=== PATIENT | male | born 1960 | race Caucasian/White ===

== ENCOUNTER → 2017-11-05 | Outpatient (CLI) | payer BC, OTHER | LOC: M ADAMS 16:41 | DX: S97.111A Crushing injury of right great toe, initial encounter (principal); X58.XXXA Exposure to other specified factors, initial encounter; Y92.89 Other specified places as the place of occurrence of the external cause; Y99.9 Unspecified external cause status; Y93.9 Activity, unspecified | CPT/HCPCS: 73660 ==

== ENCOUNTER 2019-06-01 08:36 | Emergency (ER) | payer OTHER, BC ==
[~2019-06-01] VITALS: Ht 170.2 cm; Wt 88.6 kg
[2019-06-01 08:37] VITALS: BP 172/85
[2019-06-01] MEDS ORDERED: AMLO25TA PO (08:42)
[2019-06-01] MEDS ORDERED: NOVOINJ SC (08:42)
[2019-06-01] MEDS ORDERED: RAMI1CAP26 PO (08:42)
[2019-06-01] MEDS ORDERED: ZETI10TA16 PO (08:42)
--- NOTE | 2019-06-01 09:33 | REP ---
REASON: Trauma. Patient felt a pop. There is mild AC joint DJD. The glenohumeral relationship is within normal limits. There is no acute fracture, dislocation or subluxation. IMPRESSION: Mild AC joint DJD. Electronically Signed by Willy Lantigua DO 06/01/2019 12:18 P
== END 2019-06-01 09:26 | disposition home or self-care (01) ==
LOC: M ED 08:36
DX: M25.512 Pain in left shoulder (principal); M75.102 Unspecified rotator cuff tear or rupture of left shoulder, not specified as traumatic; I10 Essential (primary) hypertension; E11.9 Type 2 diabetes mellitus without complications; Z79.4 Long term (current) use of insulin; Z79.899 Other long term (current) drug therapy

== ENCOUNTER → 2019-07-12 | Outpatient (CLI) | payer OTHER ==
[~2019-07-12] MED LIST: AMLO25TA PO; CONRAY-43 43% 50ML VIAL (Q9960) As Ordered ONE; NOVOINJ SC; PROHANCE 279.3MG/ML 5ML VIAL (A9576) As Ordered ONE; RAMI1CAP26 PO; ZETI10TA16 PO
== END ==
LOC: M RADPRO 06:38
PROVIDERS: ATTEND Orthopaedic Surgery
DX: S46.012A Strain of muscle(s) and tendon(s) of the rotator cuff of left shoulder, initial encounter (principal); Z53.8 Procedure and treatment not carried out for other reasons

== ENCOUNTER → 2019-08-13 | Outpatient (CLI) | payer OTHER ==
--- NOTE | 2019-08-13 11:17 | REP ---
MR arthrography left shoulder: with pre and post intra-articular gadolinium enhanced saline injected imaging: History: Strain left shoulder muscle or tendon. Rule out rotator cuff tear versus labral tear. No comparison study. The patient relates a history of popping injury May of 2019 with increased shoulder pain and limited range of motion left shoulder. Comparison radiographs are from June 01, 2019. Technique: The injection procedure is performed and dictated separately. Pre and post intra-articular gadolinium enhanced saline injected imaging is acquired. Imaging planes include axial, oblique coronal, oblique sagittal and ABER projection images. T1 T2-weighted scans are included with and without fat saturation. MRI findings: Pre injection imaging demonstrates osteoarthritic hypertrophy and minimal marrow edema on either side of the acromioclavicular joint. AC joint is normally aligned. Glenohumeral articulation is normally aligned. There is low T1 low T2 signal intensity granular material at the superolateral margin of the humeral head in the extra-articular soft tissues consistent with calcific tendinobursitis changes. These are surrounded by T2 hyperintense edema. The largest calcific focus measures 5 mm in greatest diameter. There is some swelling and increased signal intensity diffusely in the distal supraspinatus tendon on T1-weighted scans. There is a tiny partial-thickness T2 hyperintense lesion at the distal tendon insertion. There is no evidence of full-thickness cuff tear on pre injection imaging. There is mild tendinosis change in the subscapularis tendon. Infraspinatus tendon is unremarkable. Post injection imaging shows good filling and enhancement of the left glenohumeral articulation. There is T2 fluid and enhanced saline undermining the superior labrum cartilage on oblique coronal post injection imaging consistent with a degenerative SLAP tear nondisplaced. There is mild marginal spurring of the humeral head. There is a nondisplaced anterior labral tear visible on ABER views with enhanced saline undermining the base of the labral cartilage. No posterior labral tear is appreciated. No evidence of loose body. Post injection imaging shows no full-thickness supraspinatus cuff tear. 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 Degenerative nondisplaced superior labral and anterior labral tears. Periarticular soft tissue calcific deposits consistent with calcific tendonitis/bursitis. Supraspinatus tendinosis. Electronically Signed by Antwan Daniel MD 08/13/2019 06:51 P
--- NOTE | 2019-08-13 19:51 | REP ---
Procedure: Left shoulder arthrogram The procedure was performed under the direct supervision of Dr. Daniel. History: Left shoulder pain The benefits and risks including but not limited to pain, infection, bleeding and anaphylaxis were explained to the patient and informed consent was obtained. Technique: The left glenohumeral joint space was localized using fluoroscopic guidance. The skin was prepped and draped in a sterile fashion. 1% lidocaine was used as a local anesthetic. Using fluoroscopic guidance a 22 gauge spinal needle was inserted and advanced into the joint. 0.5 ml of Conray 43 was injected to verify placement. 11 ml of a solution containing 20 ml of sterile saline and 0.15 ml of ProHance was injected into the joint. The needle was removed and the patient was taken to MRI for postprocedural imaging. The the patient tolerated the procedure well and there were no immediate complications. Less than 6 seconds of fluoro time was utilized for this procedure. Electronically Signed by REED Tapia 08/13/2019 04:10 P Electronically Signed by Antwan Daniel MD 08/13/2019 07:41 P
== END ==
LOC: M RADPRO 06:52
PROVIDERS: ATTEND Orthopaedic Surgery
DX: M19.012 Primary osteoarthritis, left shoulder (principal); S43.432D Superior glenoid labrum lesion of left shoulder, subsequent encounter; S46.012D Strain of muscle(s) and tendon(s) of the rotator cuff of left shoulder, subsequent encounter
CPT/HCPCS: 23350; 73223; 77002; A9576; Q9960

== ENCOUNTER → 2019-11-19 | Outpatient (CLI) | payer OTHER ==
[~2019-11-19] MED LIST changes: +ATOR1TAB19 PO; -CONRAY-43 43% 50ML VIAL (Q9960) As Ordered ONE; +LEVO50TA5 PO; +PANT40TA3 PO; -PROHANCE 279.3MG/ML 5ML VIAL (A9576) As Ordered ONE; +VITA-157 PO; +VITAD1000T PO
== END ==
LOC: M LABSMTC 11:02
PROVIDERS: ATTEND Anesthesiology
DX: Z01.818 Encounter for other preprocedural examination (principal); Z11.59 Encounter for screening for other viral diseases
CPT/HCPCS: C9803; U0003

== ENCOUNTER → 2019-11-21 | Outpatient (CLI) | payer OTHER ==
--- NOTE | 2019-11-21 18:23 | ECGEPIP ---
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
[2019-11-21 19:09] LABS: HEMATOCRIT 41.6 % (42.0-52.0); MEAN CORPUSCULAR HEMOGLOBIN 30.4 pg (27.0-33.0); MEAN CORPUSCULAR HGB CONC 33.7 g/dl (32.0-36.5); MEAN CORPUSCULAR VOLUME 90.4 fl (80.0-96.0); PLATELET COUNT, AUTOMATED 269 10^3/uL (150-450)
== END ==
LOC: M LAB 17:03
PROVIDERS: ATTEND Orthopaedic Surgery
DX: Z01.818 Encounter for other preprocedural examination (principal)

== ENCOUNTER 2019-11-22 13:42 | Day surgery (SDC) | payer OTHER ==
[~2019-11-22] VITALS: Ht 170.2 cm; Wt 88.9 kg
[~2019-11-22 13:42] MED LIST changes: +ceFAZolin SOD 2 GM in IV 1 EA IV ONE
[2019-11-22] MEDS ORDERED: dexameTHASONE 10MG/1ML VIAL PRES.FREE (J1100 PER 1MG) ONE (13:43)
[2019-11-22] MEDS ORDERED: ROPIvacaine 0.5% 30ML INJECTION (J2795 PER 1MG) ONE (13:43)
[2019-11-22] MEDS ORDERED: LIDOCAINE 2% 100MG/5ML SDV (FOR ANES.) As Ordered ONE ×2 (14:09→17:37)
[2019-11-22] MEDS ORDERED: propofoL 200 MG/20 ML VIAL As Ordered ONE (14:09)
[2019-11-22] MEDS ORDERED: ROCURONIUM BROMIDE 50 MG/5 ML VIAL As Ordered ONE ×2 (14:09→17:46)
[2019-11-22] MEDS ORDERED: MIDAZOLAM INJ 2MG/2ML VIAL (J2250 PER 1MG) As Ordered ONE ×2 (14:10→16:09)
[2019-11-22] MEDS ORDERED: fentaNYL 100 MCG/2 ML INJECTION (J3010) As Ordered ONE ×2 (14:10→16:09)
[2019-11-22] MEDS ORDERED: ONDANSETRON 4MG/2ML VIAL As Ordered ONE (14:11)
[2019-11-22] MEDS ORDERED: dexameTHASONE 4 MG/ML 1ML VIAL (J1100 PER 1MG) As Ordered ONE (14:11)
[2019-11-22] MEDS ORDERED: EPINEPHrine 1MG/ML INJ 30ML MD-VIAL As Ordered ONE (16:23)
[2019-11-22] MEDS ORDERED: MIDAZOLAM INJ 2MG/2ML VIAL (J2250 PER 1MG) IV ONE (17:15)
[2019-11-22] MEDS ORDERED: fentaNYL 100 MCG/2 ML INJECTION (J3010) IV ONE (17:15)
[2019-11-22] MEDS ORDERED: LIDOCAINE 1% MDV 20ML VIAL As Ordered ONE (17:17)
[2019-11-22] MEDS ORDERED: BUPIVACAINE HCL 0.5% 30 ML VIAL As Ordered ONE (17:19)
[2019-11-22] MEDS ORDERED: LABETALOL 100MG/20ML VIAL As Ordered ONE (17:33)
[2019-11-22] MEDS ORDERED: LIDOCAINE PRES-FREE 2% 10ML AMP As Ordered ONE (17:36)
[2019-11-22] MEDS ORDERED: HYDROmorphone HCL 2 MG/ML 1ML VIAL (J1170) As Ordered ONE (17:56)
[2019-11-22] MEDS ORDERED: SUGAMMADEX SODIUM 500 MG/5 ML VIAL (BRIDION) As Ordered ONE (19:17)
[2019-11-22] MEDS ORDERED: KETOROLAC 60 MG/2 ML VIAL As Ordered ONE (19:17)
[2019-11-22] MEDS ORDERED: ACETAMINOPHEN 1000MG 100ML IV BTL (OFIRMEV) (J0131 PER 10MG) As Ordered ONE (19:17)
--- NOTE | 2019-11-22 20:14 | ECGEPIP ---
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
[2019-11-22] MEDS ORDERED: oxyCODONE 5MG TAB PO PRN (20:15)
[2019-11-22] MEDS ORDERED: ONDANSETRON 4MG/2ML VIAL IV PRN (20:15)
[2019-11-22] MEDS ORDERED: LR 1,000 ML IV SCH ×2 (20:15→20:30)
[2019-11-22] MEDS ORDERED: fentaNYL 100 MCG/2 ML INJECTION (J3010) IV PRN (20:15)
[2019-11-22] MEDS ORDERED: hydrALAZINE 20MG/ML 1ML VIAL (J0360 PER 20MG) IV SCH (20:30)
[2019-11-22] MEDS ORDERED: oxyCODONE 5MG TAB As Ordered ONE (21:21)
[2019-11-22 22:00] VITALS: BP 132/83
--- NOTE | 2019-11-26 17:33 | RO ---
DATE OF PROCEDURE: 11/22/2019 PREOPERATIVE DIAGNOSES: 1. Left shoulder anterior instability. 2. Left shoulder superior labral tear. 3. Left shoulder partial thickness rotator cuff tear. 4. Left shoulder impingement. POSTOPERATIVE DIAGNOSES: 1. Left shoulder anterior instability. 2. Left shoulder superior labral tear. 3. Left shoulder partial thickness rotator cuff tear. 4. Left shoulder impingement. 5. Chondromalacia of the glenoid. PROCEDURE: 1. Left shoulder arthroscopic anterior labral repair. 2. Left shoulder open subpectoral biceps tenodesis. 3. Left shoulder arthroscopic chondroplasty of the glenoid, superior labral debridement and rotator cuff debridement. 4. Left shoulder arthroscopic subacromial decompression including acromioplasty. SURGEON: Henrik Rivera MD HAND PLEATER: NICHOLAS Rothman ANESTHESIA: General with preoperative nerve block. IV FLUIDS: Lactated Ringer's. ESTIMATED BLOOD LOSS: 25 mL. IMPLANTS: Arthrex proximal biceps button times one, Arthrex 3 mm SutureTak times one, Arthrex 2.9 mm PushLock with LabralTape times two. CLOSURE: Monocryl, nylon. DESCRIPTION OF PROCEDURE: The patient was identified in the preoperative holding area. The left shoulder was marked by myself. He had a preoperative nerve block. He was brought to the operating room, placed supine on a well-padded operating room (OR) table. He had 170 degrees of forward flexion, 80 of external rotation with his arm at his side, grade 2 plus anterior load and shift, grade 1 posterior load and shift. He was then placed into the right side down lateral decubitus position with an axillary roll and all bony prominences were well padded. Great care was taken to protect his insulin pump. He had bilateral Venodyne boots for deep vein thrombosis (DVT) prophylaxis. The left arm was placed into the Arthrex STaR Sleeve lateral decubitus traction almaguer, 10 pounds of traction. He was secured to the OR table with a beanbag. The left shoulder was then prepped and draped in a normal sterile fashion with Chloraprep. He received appropriate IV antibiotics within 1 hour of incision. Dima Saez was present for the entire procedure and participated in all essential portions of the procedure. This included patient positioning, draping, holding the arthroscope, holding retractors and assisting with the whipstitch during the tenodesis, providing axial traction and holding the arthroscope and retrieving sutures during the labral repair, as well as applying the dressing, performing the wound closure and the sling. A standard posterolateral portal was made with #11-blade, 30-degree arthroscope introduced into the joint. Diagnostic arthroscopy was carried out revealing a type 2 SLAP tear with a large hypertrophied tear of the superior labrum. There was tearing of the entire anterior inferior labrum without any bumper. There was a positive drive-through sign. Humeral head was noted to be subluxated anterior and inferior. There was no tearing of the supra or infraspinatus on the articular surface. There was some low-grade tearing of the upper border of the subscapularis. The long head of biceps overall was intact. An anterior working portal was established through the rotator interval. On probing the superior labrum and biceps, this was an unstable tear, so I performed a tenotomy with the meniscal biter and then I performed a debridement of the superior labrum. Performed a chondroplasty to the glenoid where there was grade 2, and an area of grade 3 chondromalacia just at the very far anterior glenoid. Next, the hooked cautery was used to subperiosteally elevate capsule and labrum off the anterior glenoid neck. A second cannula was placed through the rotator interval just anterior to the biceps. Labral elevators were then used to subperiosteally elevate capsule off the anterior glenoid neck further. The full capsule labrum complex was mobilized. Ring curette was then used to remove 1 mm of articular cartilage, as well as create a bleeding surface on the anterior glenoid neck. I then drilled and placed the 3 mm Arthrex SutureTak at the 7 o'clock position. The SutureLasso was then used to shuttle the FiberTapes and LabralTapes through the anterior capsule and labrum, taking care to grasp the anterior band of the inferior glenohumeral ligament. Sutures were passed in a horizontal mattress fashion. Prior to tying them down, I then proceeded with an open biceps tenodesis. Incision made with a #15 blade just lateral to the axilla and subcutaneous dissection down to the biceps fascia. Long head of the biceps was identified and retrieved with a right angle clamp. Arthrex proximal biceps kit was opened and a running locking whipstitch placed with the Fiber Loop. Excess tendon was trimmed and discarded. I then used the spade tip drill bit to create a unicortical drill hole within the proximal humerus and the bicipital groove. Bony debris removed with irrigation. Sutures were loaded through the button, button passed through the drill hole on the radiology director, sutures toggled which flipped the button and docked the tendon along the bicipital groove nicely. Curve-free needle used to pass one limb of suture back through the tendon, knots tied by hand and locked the construct in place. This nicely restored the resting tension of the biceps. The incision was reirrigated, then closed in layered fashion #2-0 Vicryl, #2-0 Vicryl and a running Monocryl. At the end of the case, Steri-Strips were placed. Arthroscope was placed back into the joint and then the knot pusher was used to tie the SutureTak sutures using alternating half-hitch technique. This nicely restored the anterior-inferior bumper. I then used the SutureLasso to shuttle LabralTape, and these were loaded through PushLock anchors. The PushLocks were placed at the 4 and 3 o'clock position. Both had great fixation. This nicely tightened down the front of the shoulder. Subscapularis appeared excellent at this point. Shoulder was irrigated and drained. Arthroscope placed in the subacromial space where there was extensive bursitis. Through a lateral portal, I performed a bursectomy and then used the bur to perform an acromioplasty. Scattered thin deposits of calcium were encountered and debrided with a shaver. There was very impressive bursitis. However, there really was not any significant degree of bursal sided rotator cuff tearing; the MRI had overestimated this. There really was no indication for rotator cuff repair. With an excellent decompression, we then irrigated and drained the shoulder, closed the portals with nylon suture, applied a sterile dressing, and then he was placed into the ARC 2 sling. He was extubated, transferred to the post-anesthesia care unit (PACU) in stable condition. The patient may get a second nerve block seeing how the preoperative block did not work great for his pain. The plan will be for the patient to be out of work 100% temporary partial disability, and he will start physical therapy in a week.
== END 2019-11-22 22:30 | disposition home or self-care (01) ==
LOC: M SDC 13:42
PROVIDERS: ATTEND Orthopaedic Surgery
DX: M25.312 Other instability, left shoulder (principal); M75.102 Unspecified rotator cuff tear or rupture of left shoulder, not specified as traumatic; M75.42 Impingement syndrome of left shoulder; M94.212 Chondromalacia, left shoulder; S43.432A Superior glenoid labrum lesion of left shoulder, initial encounter; K21.9 Gastro-esophageal reflux disease without esophagitis; I10 Essential (primary) hypertension; E78.5 Hyperlipidemia, unspecified; E10.9 Type 1 diabetes mellitus without complications; Z79.4 Long term (current) use of insulin; Z96.41 Presence of insulin pump (external) (internal); Z79.899 Other long term (current) drug therapy; F17.220 Nicotine dependence, chewing tobacco, uncomplicated; Y92.89 Other specified places as the place of occurrence of the external cause; Y93.9 Activity, unspecified
CPT/HCPCS: 23430; 29807; 29823; 29826; 64415; 88304; 93005; C1713; J0131; J0690; J1100; J1170; J1885; J2250; J2405; J2795; J3010

== ENCOUNTER → 2020-08-11 | Outpatient (CLI) | payer BC, OTHER ==
[~2020-08-11] MED LIST changes: +D31000TA2 PO; +PANT40TA29 PO; -PANT40TA3 PO; -VITAD1000T PO; -ceFAZolin SOD 2 GM in IV 1 EA IV ONE
[2020-08-11 08:02] LABS: HEMATOCRIT 36.5 % (42.0-52.0); HEMOGLOBIN 11.9 g/dl (13.5-17.5); MEAN CORPUSCULAR HEMOGLOBIN 32.6 pg (27.0-33.0); MEAN CORPUSCULAR HGB CONC 32.6 g/dl (32.0-36.5); PLATELET COUNT, AUTOMATED 129 10^3/uL (150-450); RED BLOOD COUNT 3.65 10^6/uL (4.30-6.10); WHITE BLOOD COUNT 4.7 10^3/uL (4.0-10.0)
[2020-08-11 08:24] LABS: HEMOGLOBIN A1c 8.7 %
[2020-08-11 08:38] LABS: ALBUMIN 3.1 GM/DL (3.2-5.2); ALT/SGPT 93 U/L (12-78); BILIRUBIN,TOTAL 1.4 MG/DL (0.2-1.0); BLOOD UREA NITROGEN 10 MG/DL (7-18); CARBON DIOXIDE LEVEL 30 MEQ/L (21-32); CHLORIDE LEVEL 96 MEQ/L (98-107); CHOLESTEROL LEVEL 271 MG/DL (<200); CHOLESTEROL RISK RATIO 6.302 (<5); CREATININE FOR GFR 1.14 MG/DL (0.70-1.30); GLOMERULAR FILTRATION RATE > 60.0 (>56); GLUCOSE, FASTING 345 MG/DL (70-100); HDL CHOLESTEROL 43 MG/DL (>40); LDL CHOLESTEROL 208 MG/DL (<100); NON-HDL-C 228 MG/DL; POTASSIUM SERUM 4.1 MEQ/L (3.5-5.1); PROSTATIC SPECIFIC AG MONITOR 0.31 NG/ML (< 4.00); SODIUM LEVEL 135 MEQ/L (136-145); THYROID STIMULATING HORMONE 0.618 uIU/ML (0.358-3.740); TRIGLYCERIDES LEVEL 99 MG/DL (<150)
[2020-08-11 11:46] LABS: TOTAL 25(OH) VITAMIN D 36.3 NG/ML (30.0-100.0)
[2020-08-11 11:47] LABS: TESTOSTERONE 512 NG/DL (241-827)
== END ==
LOC: M LAB 06:38
PROVIDERS: ATTEND Family Medicine
DX: I10 Essential (primary) hypertension (principal); R53.83 Other fatigue

== ENCOUNTER → 2020-08-29 | Outpatient (CLI) | payer BC, OTHER ==
--- NOTE | 2020-08-29 13:27 | REP ---
INDICATION: HTN,FATIGUE. COMPARISON: 05/23/2011 TECHNIQUE: Two views FINDINGS: The lung manzano are well inflated. CP angles are sharply defined. There is no pleural effusion, lateral pleural thickening, acute infiltrate, pulmonary nodule or parenchymal mass evident. Heart is not enlarged and shows no chamber enlargement. There is no vascular redistribution or pulmonary edema. Bony thorax shows small marginal osteophytes, age-appropriate without compression deformity or destructive lesion. No free air under the diaphragm. IMPRESSION: 1. No acute cardiopulmonary change, stable chest. <Electronically signed by Eddie Israel > 08/29/20 [id number]
--- NOTE | 2020-08-30 14:39 | ECGEPIP ---
[facility] Test Date: 2020-08-29 Pat Name: BLAYNE RAY Department: Room: - Gender: Male Visual Coordinator: CHANELL : 1960 Requested By: Ephraim Mcleod Order Number: [id number] Reading MD: Nixon Nazario Measurements Intervals [place] Rate: 99 P: 73 [place]: 178 QRS: -17 QRSD: 86 T: 8 QT: 368 QTc: 472 Interpretive Statements Normal sinus rhythm Low QRS complex voltage in the limb leads Inferior wall OK, age indeterminate Delayed anterior R wave progression Nonspecific ST-T wave abnormalities Compared to prior tracing of 11/22/2019, anterior R wave progression is improved Electronically Signed on 08-30-2020 14:38:55 EST by Nixon Nazario
== END ==
LOC: M EKG 12:02
PROVIDERS: ATTEND Family Medicine
DX: I10 Essential (primary) hypertension (principal); E11.9 Type 2 diabetes mellitus without complications; R53.83 Other fatigue

== ENCOUNTER → 2020-10-21 | Outpatient (CLI) | payer BC, OTHER ==
[~2020-10-21] MED LIST changes: -VITA-157 PO; +VITAE40CA PO
[2020-10-21 10:08] LABS: HEMATOCRIT 44.1 % (42.0-52.0); HEMOGLOBIN 14.5 g/dl (13.5-17.5); MEAN CORPUSCULAR HEMOGLOBIN 29.9 pg (27.0-33.0); MEAN CORPUSCULAR HGB CONC 32.9 g/dl (32.0-36.5); MEAN CORPUSCULAR VOLUME 90.9 fl (80.0-96.0); PLATELET COUNT, AUTOMATED 278 10^3/uL (150-450); RED BLOOD COUNT 4.85 10^6/uL (4.30-6.10); WHITE BLOOD COUNT 6.3 10^3/uL (4.0-10.0)
[2020-10-21 10:46] LABS: ALBUMIN 4.1 GM/DL (3.2-5.2); ALT/SGPT 23 U/L (12-78); BILIRUBIN,TOTAL 0.4 MG/DL (0.2-1.0); BLOOD UREA NITROGEN 10 MG/DL (7-18); CALCIUM LEVEL 9.6 MG/DL (8.5-10.1); CARBON DIOXIDE LEVEL 28 MEQ/L (21-32); CHLORIDE LEVEL 101 MEQ/L (98-107); CHOLESTEROL LEVEL 341 MG/DL (<200); CHOLESTEROL RISK RATIO 6.433 (<5); CREATININE FOR GFR 1.14 MG/DL (0.70-1.30); GLOMERULAR FILTRATION RATE > 60.0 (>56); GLUCOSE, FASTING 301 MG/DL (70-100); HDL CHOLESTEROL 53 MG/DL (>40); LDL CHOLESTEROL 255 MG/DL (<100); NON-HDL-C 288 MG/DL; POTASSIUM SERUM 4.1 MEQ/L (3.5-5.1); PROSTATIC SPECIFIC AG MONITOR 0.46 NG/ML (< 4.00); SODIUM LEVEL 137 MEQ/L (136-145); TOTAL PROTEIN 7.5 GM/DL (6.4-8.2); TRIGLYCERIDES LEVEL 166 MG/DL (<150)
[2020-10-21 10:52] LABS: TESTOSTERONE 722 NG/DL (241-827)
== END ==
LOC: M LAB 09:06
PROVIDERS: ATTEND Family Medicine
DX: I10 Essential (primary) hypertension (principal); E11.9 Type 2 diabetes mellitus without complications; R53.83 Other fatigue

== ENCOUNTER → 2021-01-13 | Outpatient (CLI) | payer BC, OTHER ==
[~2021-01-13] MED LIST changes: +GABA-282 PO
== END ==
LOC: M LABSMTC 13:09
PROVIDERS: ATTEND Anesthesiology
DX: Z01.812 Encounter for preprocedural laboratory examination (principal); Z20.822 Contact with and (suspected) exposure to COVID-19

== ENCOUNTER 2021-01-18 08:42 | Day surgery (SDC) | payer BC, OTHER ==
[~2021-01-18] VITALS: Ht 170.2 cm; Wt 83.9 kg
[2021-01-18] MEDS ORDERED: POVIDONE-IODINE 5% OPHTH PREP SOL 30ML As Ordered ONE (11:00)
[2021-01-18] MEDS ORDERED: mitoMYcin 0.2 MG/VIAL KIT FOR OPHTHALMIC USE (J7315 PER 0.2MG) As Ordered ONE (11:01)
[2021-01-18] MEDS ORDERED: LIDOCAINE 2% W/EPINEPHRINE 20ML VIAL **PRES FREE As Ordered ONE (11:02)
[2021-01-18] MEDS ORDERED: PROPARACAINE 0.5% OPHTH SOL 15ML As Ordered ONE (11:15)
[2021-01-18] MEDS ORDERED: fentaNYL 100 MCG/2 ML INJECTION (J3010) As Ordered ONE (11:17)
[2021-01-18] MEDS ORDERED: MIDAZOLAM INJ 2MG/2ML VIAL (J2250 PER 1MG) As Ordered ONE ×2 (11:17→11:23)
[2021-01-18 12:55] VITALS: BP 118/73
--- NOTE | 2021-01-19 15:16 | RO ---
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 POSTOPERATIVE DIAGNOSIS: Peripheral progressive pterygium of the left eye. PROCEDURE: Excision of peripheral progressive pterygium of the left eye with the use of mitomycin-C (off-label, not FDA approved), placement of amniotic membrane graft and use of glue. SURGEON: Carl Le DO JUNIOR WEB DESIGNER: None. ANESTHESIA: Local with MAC, local 2% lidocaine with epinephrine and MAC. SPECIMEN: Patient's pterygium. DESCRIPTION OF PROCEDURE: The patient was seen and identified in the preoperative area. The consents were reviewed and the surgical eye was marked. The patient received topical anesthetics and antibiotics and the patient was transferred to the operating room. The patient's eye was prepped and draped in a sterile fashion and Tegaderm was used to isolate the upper and lower eyelids. A speculum was placed. 2% lidocaine with epinephrine was injected into the subconjunctival space and then this was spread with an applicator. Approximately 0.3 mL were used. Using Mirela scissors and 0.12 forceps, the head of the pterygium was removed from the cornea and submitted to pathology. Further dissection was carried out posteriorly to remove the body of the pterygium approximately 3 mm posteriorly and this was excised and discarded. At that time, a crescent blade was used to remove any fibers that were attached to it and this was done without difficulty. A 5.0 mm shania bur was used to armenian the cornea of the nasal area. Mirela scissors and 0.12 forceps were used to remove any protruding Tenon capsule so that the conjunctiva can lay flat. Gentle wet-field cautery was placed to the scleral bed. The conjunctival defect was measured to be approximately 5x6 mm and cryopreserved amniotic membrane graft was fashioned to this size. The graft was brought near the patient's eye and the graft was placed over the surface of the cornea. Two 10-0 nylon sutures were used to tack the graft to the corneal limbus as well as two additional sutures were used to tack the graft to the posterior conjunctival edge. Mitomycin-C was prepared at the back table. Approximately 0.1 mL was used to inject into the conjunctival edge. Vigorous BSS was used for washout of the mitomycin. Microdebrider was used to dry the surface. Glue was warmed and prepared. This was injected beneath the amniotic membrane. The graft was smoothed out and using bent forceps and straight forceps until the graft was adherent to the surface of the scleral bed. This was done until the graft was seated into position and at that time, a bandage contact lens was used over the surface of the cornea. The patient tolerated the procedure well. The drapes were removed. The patient was discharged to the PACU in stable condition.
== END 2021-01-18 12:55 | disposition home or self-care (01) ==
LOC: M SDC 08:42
PROVIDERS: ATTEND Ophthalmology
DX: H11.052 Peripheral pterygium, progressive, left eye (principal); E10.9 Type 1 diabetes mellitus without complications; E03.9 Hypothyroidism, unspecified; E78.5 Hyperlipidemia, unspecified; F17.220 Nicotine dependence, chewing tobacco, uncomplicated; I10 Essential (primary) hypertension; K21.9 Gastro-esophageal reflux disease without esophagitis; M06.9 Rheumatoid arthritis, unspecified; R21 Rash and other nonspecific skin eruption; Z79.4 Long term (current) use of insulin; Z79.890 Hormone replacement therapy; Z79.899 Other long term (current) drug therapy; Z96.41 Presence of insulin pump (external) (internal)
CPT/HCPCS: 65426; 88304; C1762; J2250; J3010; J7315

== ENCOUNTER → 2021-04-14 | Outpatient (CLI) | payer BC, OTHER ==
--- NOTE | 2021-04-14 08:54 | REP ---
INDICATION: HTN PT HAS LAB AND EKG FIRST COMPARISON: 08/29/2020 TECHNIQUE: PA and lateral. FINDINGS: The mediastinum and cardiac silhouette are normal. The lung manzano are clear and without acute consolidation, effusion, or pneumothorax. The skeletal structures are intact and normal. IMPRESSION: No acute cardiopulmonary process. <Electronically signed by Fco Azar > 04/14/21 [id number]
[2021-04-14 09:13] LABS: HEMATOCRIT 41.1 % (42.0-52.0); HEMOGLOBIN 13.5 g/dl (13.5-17.5); MEAN CORPUSCULAR HEMOGLOBIN 29.4 pg (27.0-33.0); MEAN CORPUSCULAR HGB CONC 32.8 g/dl (32.0-36.5); MEAN CORPUSCULAR VOLUME 89.5 fl (80.0-96.0); PLATELET COUNT, AUTOMATED 275 10^3/uL (150-450); RED BLOOD COUNT 4.59 10^6/uL (4.30-6.10); WHITE BLOOD COUNT 6.3 10^3/uL (4.0-10.0)
[2021-04-14 10:12] LABS: ALBUMIN 3.9 GM/DL (3.2-5.2); ALT/SGPT 53 U/L (12-78); BILIRUBIN,TOTAL 0.4 MG/DL (0.2-1.0); BLOOD UREA NITROGEN 16 MG/DL (7-18); CALCIUM LEVEL 9.2 MG/DL (8.5-10.1); CARBON DIOXIDE LEVEL 31 MEQ/L (21-32); CHLORIDE LEVEL 106 MEQ/L (98-107); CHOLESTEROL LEVEL 207 MG/DL (<200); CHOLESTEROL RISK RATIO 2.587 (<5); CREATININE FOR GFR 0.99 MG/DL (0.70-1.30); GLOMERULAR FILTRATION RATE > 60.0 (>56); GLUCOSE, FASTING 167 MG/DL (70-100); HDL CHOLESTEROL 80 MG/DL (>40); LDL CHOLESTEROL 108 MG/DL (<100); NON-HDL-C 127 MG/DL; POTASSIUM SERUM 4.6 MEQ/L (3.5-5.1); PROSTATIC SPECIFIC AG MONITOR 0.55 NG/ML (< 4.00); SODIUM LEVEL 140 MEQ/L (136-145); TOTAL PROTEIN 7.3 GM/DL (6.4-8.2); TRIGLYCERIDES LEVEL 94 MG/DL (<150)
[2021-04-14 10:13] LABS: TESTOSTERONE 502 NG/DL (241-827)
--- NOTE | 2021-04-14 14:08 | ECGEPIP ---
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 Cannot rule out old Inferior infarct. Decreased heart rate compared with 08/29/2020. Electronically Signed on 04-14-2021 14:08:14 EDT by Ron Landry
== END ==
LOC: M LAB 07:57
PROVIDERS: ATTEND Family Medicine
DX: I10 Essential (primary) hypertension (principal)

== ENCOUNTER → 2021-04-21 | Outpatient (CLI) | payer BC, OTHER ==
--- NOTE | 2021-04-21 13:17 | REP ---
INDICATION: MASS LT BREAST. COMPARISON: None TECHNIQUE: Real-time sonographic evaluation of left breast performed. FINDINGS: No cystic or solid mass is seen in the left breast. There is mild retroareolar fibroglandular tissue compatible with mild gynecomastia. IMPRESSION: BIRADS/ACR category 2, benign. Mild retroareolar gynecomastia without evidence of a suspicious cystic or solid mass. RECOMMENDATION: Clinical follow-up. <Electronically signed by Nick Car > 04/21/21 [id number]
== END ==
LOC: M RAD 12:25
PROVIDERS: ATTEND Family Medicine
DX: N63.20 Unspecified lump in the left breast, unspecified quadrant (principal)

== ENCOUNTER → 2021-05-18 | Outpatient (REF) | payer BC, OTHER ==
[2021-05-18 18:38] LABS: APPEARANCE, URINE CLOUDY (CLEAR); BACTERIA, URINE AUTO 1+ (NEGATIVE); BILIRUBIN, URINE AUTO NEGATIVE (NEGATIVE); BLOOD, URINE BLOOD 1+ (NEGATIVE); COLOR, URINE YELLOW (YELLOW); GLUCOSE, URINE (UA) AUTO 3+ mg/dL (NEGATIVE); KETONE, URINE AUTO TRACE mg/dL (NEGATIVE); LEUKOCYTE ESTERASE, URINE AUTO 3+ (NEGATIVE); NITRITE, URINE AUTO POSITIVE (NEGATIVE); PROTEIN, URINE AUTO 1+ mg/dL (NEGATIVE); RBC, URINE AUTO 3 /HPF (0-3); SPECIFIC GRAVITY URINE AUTO 1.014 (1.002-1.035); SQUAMOUS EPITHELIAL CELL UR AU 0 /HPF (0-6); UROBILINOGEN, URINE AUTO 0.2 mg/dL (0.0-2.0); WBC, URINE AUTO TNTC /HPF (0-3)
== END ==
LOC: M LAB REF 16:26
PROVIDERS: ATTEND Physician Assistant Medical
DX: R30.0 Dysuria (principal)

== ENCOUNTER → 2021-05-21 | Outpatient (REF) | payer BC, OTHER ==
[2021-05-21 17:05] LABS: BASO % 0.5 % (0.0-1.0); EOS % 0.2 % (0.0-3.0); HEMATOCRIT 36.1 % (42.0-52.0); HEMOGLOBIN 11.9 g/dl (13.5-17.5); LYMPH # 0.6 10^3/uL (1.5-5.0); LYMPH % 9.3 % (24.0-44.0); MEAN CORPUSCULAR HEMOGLOBIN 28.3 pg (27.0-33.0); MONO # 0.3 10^3/uL (0.0-0.8); MONO % 5.6 % (2.0-8.0); NEUTROPHILS % 83.1 % (36.0-66.0); PLATELET COUNT, AUTOMATED 319 10^3/uL (150-450); WHITE BLOOD COUNT 6.1 10^3/uL (4.0-10.0)
[2021-05-24 19:07] LABS: Lyme Disease IgG/IgM Antibodie <0.91 ISR (0.00-0.90); Lyme Disease IgM Ab Quantitati <0.80 index (0.00-0.79)
== END ==
LOC: M LAB REF 16:24
PROVIDERS: ATTEND Physician Assistant
DX: R50.9 Fever, unspecified (principal); W57.XXXA Bitten or stung by nonvenomous insect and other nonvenomous arthropods, initial encounter; Y99.8 Other external cause status

== ENCOUNTER → 2021-06-10 | Outpatient (REF) | payer OTHER ==
[2021-06-10 21:39] LABS: APPEARANCE, URINE HAZY (CLEAR); BACTERIA, URINE AUTO 1+ (NEGATIVE); BILIRUBIN, URINE AUTO NEGATIVE (NEGATIVE); BLOOD, URINE BLOOD 1+ (NEGATIVE); COLOR, URINE STRAW (YELLOW); GLUCOSE, URINE (UA) AUTO 3+ mg/dL (NEGATIVE); KETONE, URINE AUTO NEGATIVE (NEGATIVE); LEUKOCYTE ESTERASE, URINE AUTO 2+ (NEGATIVE); NITRITE, URINE AUTO NEGATIVE (NEGATIVE); PROTEIN, URINE AUTO NEGATIVE (NEGATIVE); RBC, URINE AUTO 0 /HPF (0-3); SQUAMOUS EPITHELIAL CELL UR AU 0 /HPF (0-6); UROBILINOGEN, URINE AUTO 0.2 mg/dL (0.0-2.0); WBC, URINE AUTO 129 /HPF (0-3)
== END ==
LOC: M LAB REF 21:17
PROVIDERS: ATTEND Physician Assistant
DX: N39.0 Urinary tract infection, site not specified (principal)

== ENCOUNTER → 2021-07-04 | Outpatient (REF) | payer OTHER ==
[2021-07-04 19:20] LABS: AMORPHOUS SEDIMENT SMALL (NEGATIVE); APPEARANCE, URINE CLOUDY (CLEAR); BACTERIA, URINE AUTO NEGATIVE (NEGATIVE); BILIRUBIN, URINE AUTO NEGATIVE (NEGATIVE); BLOOD, URINE BLOOD 1+ (NEGATIVE); COLOR, URINE YELLOW (YELLOW); GLUCOSE, URINE (UA) AUTO 3+ mg/dL (NEGATIVE); KETONE, URINE AUTO NEGATIVE (NEGATIVE); LEUKOCYTE ESTERASE, URINE AUTO 3+ (NEGATIVE); MUCUS, URINE SMALL (NEGATIVE); NITRITE, URINE AUTO NEGATIVE (NEGATIVE); PROTEIN, URINE AUTO NEGATIVE (NEGATIVE); RBC, URINE AUTO 0 /HPF (0-3); SPECIFIC GRAVITY URINE AUTO 1.007 (1.002-1.035); SQUAMOUS EPITHELIAL CELL UR AU 0 /HPF (0-6); UROBILINOGEN, URINE AUTO 0.2 mg/dL (0.0-2.0); WBC, URINE AUTO 176 /HPF (0-3)
== END ==
LOC: M LAB REF 18:41
PROVIDERS: ATTEND Physician Assistant Medical
DX: R30.0 Dysuria (principal)

== ENCOUNTER → 2021-07-21 | Outpatient (CLI) | payer OTHER ==
[~2021-07-21] MED LIST changes: +ISOVUE-300 61% 50ML VIAL As Ordered ONE; +LIDOCAINE 1% MDV 20ML VIAL As Ordered ONE; +TRIAMCINOLONE ACETONIDE SUSP 40 MG/ML VIAL (J3301) As Ordered ONE
== END ==
LOC: M RADPRO 10:59
PROVIDERS: ATTEND Orthopaedic Surgery
DX: M19.012 Primary osteoarthritis, left shoulder (principal)
CPT/HCPCS: 20610; 77002; J3301; Q9967

== ENCOUNTER → 2021-09-08 | Outpatient (CLI) | payer BC, OTHER ==
[~2021-09-08] MED LIST changes: -D31000TA2 PO; -ISOVUE-300 61% 50ML VIAL As Ordered ONE; -LIDOCAINE 1% MDV 20ML VIAL As Ordered ONE; -TRIAMCINOLONE ACETONIDE SUSP 40 MG/ML VIAL (J3301) As Ordered ONE; +VITA100093 PO
[2021-09-08 08:57] LABS: HEMATOCRIT 41.4 % (42.0-52.0); HEMOGLOBIN 13.7 g/dl (13.5-17.5); MEAN CORPUSCULAR HEMOGLOBIN 28.7 pg (27.0-33.0); MEAN CORPUSCULAR HGB CONC 33.1 g/dl (32.0-36.5); MEAN CORPUSCULAR VOLUME 86.6 fl (80.0-96.0); PLATELET COUNT, AUTOMATED 282 10^3/uL (150-450); RED BLOOD COUNT 4.78 10^6/uL (4.30-6.10); WHITE BLOOD COUNT 5.8 10^3/uL (4.0-10.0)
[2021-09-08 09:03] LABS: APPEARANCE, URINE CLEAR (CLEAR); BACTERIA, URINE AUTO NEGATIVE (NEGATIVE); BILIRUBIN, URINE AUTO NEGATIVE (NEGATIVE); BLOOD, URINE BLOOD NEGATIVE (NEGATIVE); COLOR, URINE YELLOW (YELLOW); GLUCOSE, URINE (UA) AUTO 3+ mg/dL (NEGATIVE); KETONE, URINE AUTO NEGATIVE (NEGATIVE); LEUKOCYTE ESTERASE, URINE AUTO 1+ (NEGATIVE); MUCUS, URINE SMALL (NEGATIVE); NITRITE, URINE AUTO NEGATIVE (NEGATIVE); PROTEIN, URINE AUTO NEGATIVE (NEGATIVE); RBC, URINE AUTO 2 /HPF (0-3); SPECIFIC GRAVITY URINE AUTO 1.014 (1.002-1.035); SQUAMOUS EPITHELIAL CELL UR AU 0 /HPF (0-6); UROBILINOGEN, URINE AUTO 0.2 mg/dL (0.0-2.0); WBC, URINE AUTO 18 /HPF (0-3)
[2021-09-08 09:22] LABS: MALB URINE SIEMENS 22.9 MG/L; MAU/CREAT RATIO 20.8 MCG/MG (0.0-30.0)
[2021-09-08 09:23] LABS: BLOOD UREA NITROGEN 14 MG/DL (7-18); CARBON DIOXIDE LEVEL 31 MEQ/L (21-32); CHLORIDE LEVEL 103 MEQ/L (98-107); CREATININE FOR GFR 1.11 MG/DL (0.70-1.30); GLOMERULAR FILTRATION RATE > 60.0 (>56); GLUCOSE, FASTING 152 MG/DL (70-100); SODIUM LEVEL 139 MEQ/L (136-145)
[2021-09-08 09:24] LABS: ALBUMIN 4.2 GM/DL (3.2-5.2); ALT/SGPT 30 U/L (12-78); BILIRUBIN,TOTAL 0.3 MG/DL (0.2-1.0); PROSTATIC SPECIFIC AG MONITOR 0.69 NG/ML (< 4.00); TOTAL PROTEIN 7.5 GM/DL (6.4-8.2)
[2021-09-08 09:46] LABS: HEMOGLOBIN A1c 10.8 %
== END ==
LOC: M LAB 07:52
PROVIDERS: ATTEND Family Medicine
DX: E11.9 Type 2 diabetes mellitus without complications (principal); I10 Essential (primary) hypertension; N39.0 Urinary tract infection, site not specified

== ENCOUNTER → 2022-02-27 | Outpatient (CLI) | payer BC, OTHER ==
[~2022-02-27] MED LIST changes: +AMLO1TAB24 PO; +INSUH10VL SC; +INSULANT SC; +LEVO88TA3 PO
== END ==
LOC: M LABSMTC 10:36
PROVIDERS: ATTEND Anesthesiology
DX: Z01.812 Encounter for preprocedural laboratory examination (principal); Z20.822 Contact with and (suspected) exposure to COVID-19

== ENCOUNTER 2022-03-02 09:17 | Day surgery (SDC) | payer BC, OTHER ==
[~2022-03-02] VITALS: Ht 172.7 cm; Wt 86.2 kg
[~2022-03-02 09:17] MED LIST changes: +NS 1,000 ML IV ONE
[2022-03-02] MEDS ORDERED: LIDOCAINE 2% 100MG/5ML SDV (FOR ANES.) As Ordered ONE ×2 (10:07→10:27)
[2022-03-02] MEDS ORDERED: propofoL 200 MG/20 ML VIAL As Ordered ONE (10:07)
[2022-03-02 10:45] VITALS: BP 155/80
== END 2022-03-02 10:55 | disposition home or self-care (01) ==
LOC: M OPP 09:17
PROVIDERS: ATTEND Internal Medicine Gastroenterology
DX: Z12.11 Encounter for screening for malignant neoplasm of colon (principal); K63.5 Polyp of colon; K64.0 First degree hemorrhoids; E10.9 Type 1 diabetes mellitus without complications; I10 Essential (primary) hypertension; E78.5 Hyperlipidemia, unspecified; E03.9 Hypothyroidism, unspecified; F32.9 Major depressive disorder, single episode, unspecified; F17.220 Nicotine dependence, chewing tobacco, uncomplicated; Z79.899 Other long term (current) drug therapy; Z87.891 Personal history of nicotine dependence

== ENCOUNTER → 2024-04-03 | Outpatient (CLI) | payer BC ==
[~2024-04-03] MED LIST changes: +EZET10TA58 PO; -NS 1,000 ML IV ONE; +RAMI10CA64 PO; -RAMI1CAP26 PO; -ZETI10TA16 PO
== END ==
LOC: M PLAIMG 14:49
PROVIDERS: ATTEND Physician Assistant
DX: M51.36 Other intervertebral disc degeneration, lumbar region (principal); M47.27 Other spondylosis with radiculopathy, lumbosacral region; M51.16 Intervertebral disc disorders with radiculopathy, lumbar region; M48.07 Spinal stenosis, lumbosacral region